=== PATIENT | female | born 1995 | race Two or more races ===

== ENCOUNTER 2019-09-24 22:30 | Emergency (ER) | payer SELFPAY ==
[~2019-09-24] VITALS: Ht 167.6 cm; Wt 125.0 kg
[2019-09-25] MEDS ORDERED: LIDOCAINE 1% 10 ML VIAL INJ ONE (03:15)
[2019-09-25] MEDS ORDERED: PERTUSS(ACELL),DIPH,TET VAC/PF 0.5 ML VIAL IM ONE (03:15)
[2019-09-25 04:30] VITALS: BP 127/68
== END 2019-09-25 04:47 | disposition home or self-care (01) ==
LOC: EMS 22:31
DX: S81.812A Laceration without foreign body, left lower leg, initial encounter (principal); W00.0XXA Fall on same level due to ice and snow, initial encounter; Y93.21 Activity, ice skating; Y92.89 Other specified places as the place of occurrence of the external cause; Y99.8 Other external cause status
CPT/HCPCS: 12002; 90471; 90715; 99283; J3490